=== PATIENT | female | born 1980 | race African-American/Black ===

== ENCOUNTER 2023-04-18 10:47 | Inpatient (IN) | payer OTHER ==
[2023-04-18 11:26] VITALS: BMI 21.7
[2023-04-18] MEDS ORDERED: LOPERAMIDE HCL 2 MG CAPSULE PO PRN (12:18)
[2023-04-18] MEDS ORDERED: NALOXONE HCL (KLOXXADO) 8 MG SPRAY NS PRN (12:18)
[2023-04-18] MEDS ORDERED: NALOXONE HCL 0.4 MG/ML VIAL IM PRN (12:18)
[2023-04-18] MEDS ORDERED: guaiFENesin 600 MG TABLET.ER (FP) PO PRN (12:18)
[2023-04-18] MEDS ORDERED: POLYETHYLENE GLYCOL (HEALTHYLAX) 3350 17 GM PACKET PO PRN (12:18)
[2023-04-18] MEDS ORDERED: ACETAMINOPHEN 325 MG TABLET (FP) PO PRN (12:18)
[2023-04-18] MEDS ORDERED: BENZONATATE 200 MG CAPSULE PO PRN (12:18)
[2023-04-18] MEDS ORDERED: MAGNESIUM HYDROX 2400MG/30ML ORAL SUSPENSION 30 ML CUP PO PRN (12:18)
[2023-04-18] MEDS ORDERED: BISMUTH SUBSALICYLATE 262 MG/15 ML BTL PO PRN (12:18)
[2023-04-18] MEDS ORDERED: NICOTINE 10 MG CARTRIDGE (INHALER) IH PRN (12:18)
[2023-04-18] MEDS ORDERED: BENZOCAINE/MENTHOL (CHLORASEPTIC ) LOZENGE MM PRN (12:18)
[2023-04-18] MEDS ORDERED: IBUPROFEN 400 MG TABLET (FP) PO PRN (12:18)
[2023-04-18] MEDS ORDERED: cloNIDine HCL 0.1 MG TABLET PO PRN (12:23)
[2023-04-18] MEDS ORDERED: methaDONE HCL 10 MG TABLET (FOR DETOX USE ONLY) PO ONE (12:23)
[2023-04-18] MEDS: METHOCARBAMOL 500 MG TABLET PO PRN ×2 (13:09→18:17)
[2023-04-18] MEDS: hydrOXYzine PAMOATE 25 MG CAPSULE (FP) PO PRN ×3 (13:09→22:44)
[2023-04-18] MEDS: THIAMINE HCL 100 MG TABLET (FP) PO SCH (22:44)
[2023-04-18] MEDS: MELATONIN 5 MG TABLETS PO SCH (22:44)
[2023-04-19] MEDS: IBUPROFEN 600 MG TABLET (FP) PO PRN (05:40)
[2023-04-19] MEDS: ONDANSETRON *ODT* 4 MG TABLET SL PRN (07:57)
[2023-04-19] MEDS: hydrOXYzine PAMOATE 25 MG CAPSULE (FP) PO PRN ×2 (07:57→17:44)
[2023-04-19] MEDS: DICYCLOMINE HCL 10 MG CAPSULE PO PRN (07:57)
[2023-04-19] MEDS: METHOCARBAMOL 500 MG TABLET PO PRN ×2 (07:57→17:43)
[2023-04-19] MEDS: PRENATAL VITAMINS W/ FOLIC ACID TABLET (FP) PO SCH (10:16)
[2023-04-19 11:02] LABS: POTASSIUM 4.1 mmol/L (3.5-5.1)
[2023-04-19 11:05] LABS: HEMATOCRIT 41.3 % (32.4-45.2); HEMOGLOBIN 14.1 GM/dL (10.7-15.3); MCH 30.3 pg (25.7-33.7); MCHC 34.1 g/dl (32.0-36.0); MEAN CELL VOLUME 88.8 fl (80-96); MEAN PLT VOLUME 9.6 fl (7.5-11.1); PLATELET COUNT 226 10^3/uL (134-434); RBC 4.65 M/mm3 (3.60-5.2); RDW 13.8 % (11.6-15.6); WHITE BLOOD COUNT 4.3 K/mm3 (4.0-10.0)
[2023-04-19 11:16] LABS: CALCIUM 9.4 mg/dL (8.5-10.1)
[2023-04-19 11:17] LABS: ALBUMIN 3.4 g/dl (3.4-5.0)
[2023-04-19 11:20] LABS: BILIRUBIN,TOTAL 0.7 mg/dL (0.2-1); CREATININE 0.8 mg/dL (0.55-1.3); TOT PROT 6.8 g/dl (6.4-8.2)
[2023-04-19] MEDS: THIAMINE HCL 100 MG TABLET (FP) PO SCH (21:32)
[2023-04-19] MEDS: MELATONIN 5 MG TABLETS PO SCH (21:32)
[2023-04-20] MEDS: IBUPROFEN 600 MG TABLET (FP) PO PRN (03:46)
[2023-04-20] MEDS: METHOCARBAMOL 500 MG TABLET PO PRN ×2 (05:15→14:19)
[2023-04-20] MEDS: hydrOXYzine PAMOATE 25 MG CAPSULE (FP) PO PRN ×2 (05:15→10:07)
[2023-04-20] MEDS ORDERED: methaDONE HCL 10 MG TABLET (FOR DETOX USE ONLY) PO ONE (10:00)
[2023-04-20] MEDS: PRENATAL VITAMINS W/ FOLIC ACID TABLET (FP) PO SCH (10:07)
[2023-04-20] MEDS: MELATONIN 5 MG TABLETS PO SCH (22:34)
[2023-04-20] MEDS: THIAMINE HCL 100 MG TABLET (FP) PO SCH (22:34)
[2023-04-21] MEDS: METHOCARBAMOL 500 MG TABLET PO PRN ×2 (00:44→09:59)
[2023-04-21] MEDS: IBUPROFEN 600 MG TABLET (FP) PO PRN (00:44)
[2023-04-21] MEDS: DICYCLOMINE HCL 10 MG CAPSULE PO PRN ×3 (02:04→22:27)
[2023-04-21] MEDS: MAG HYDROX/AL HYDROX/SIMETH 30 ML UNIT-DOSE CUP PO PRN ×3 (03:11→22:32)
[2023-04-21] MEDS: ONDANSETRON *ODT* 4 MG TABLET SL PRN (09:36)
[2023-04-21] MEDS: PRENATAL VITAMINS W/ FOLIC ACID TABLET (FP) PO SCH (09:58)
[2023-04-21] MEDS: hydrOXYzine PAMOATE 25 MG CAPSULE (FP) PO PRN ×2 (09:59→22:27)
[2023-04-21] MEDS ORDERED: PANTOPRAZOLE 40 MG TABLET PO ONE (13:30)
[2023-04-21] MEDS: MELATONIN 5 MG TABLETS PO SCH (22:26)
[2023-04-21] MEDS: THIAMINE HCL 100 MG TABLET (FP) PO SCH (22:26)
[2023-04-22] MEDS: MAG HYDROX/AL HYDROX/SIMETH 30 ML UNIT-DOSE CUP PO PRN ×2 (05:53→17:51)
[2023-04-22] MEDS: PANTOPRAZOLE 40 MG TABLET PO SCH (06:14)
[2023-04-22] MEDS ORDERED: methaDONE HCL 10 MG TABLET (FOR DETOX USE ONLY) PO ONE (10:00)
[2023-04-22] MEDS: METHOCARBAMOL 500 MG TABLET PO PRN (10:06)
[2023-04-22] MEDS: PRENATAL VITAMINS W/ FOLIC ACID TABLET (FP) PO SCH (10:06)
[2023-04-22] MEDS ORDERED: NICOTINE POLACRILEX 2 MG GUM BUC PRN (10:54)
[2023-04-22] MEDS ORDERED: COLLOIDAL OATMEAL 1 BAR EACH TP PRN (11:06)
[2023-04-22] MEDS: hydrOXYzine PAMOATE 25 MG CAPSULE (FP) PO PRN (17:18)
[2023-04-22] MEDS: THIAMINE HCL 100 MG TABLET (FP) PO SCH (22:05)
[2023-04-22] MEDS: MELATONIN 5 MG TABLETS PO SCH (22:05)
[2023-04-23] MEDS: PANTOPRAZOLE 40 MG TABLET PO SCH (06:12)
[2023-04-23 09:34] VITALS: BP 105/61; PULSE 64; RESP 16; TEMP 97.3
[2023-04-23] MEDS: PRENATAL VITAMINS W/ FOLIC ACID TABLET (FP) PO SCH (10:30)
== END 2023-04-23 09:05 | disposition home or self-care (01) | DRG 773 ==
LOC: YASAS 10:47 → Y6N 12:51
PROVIDERS: ADMIT Allergy & Immunology; ATTEND Surgery
PROC: HZ2ZZZZ Detoxification Services for Substance Abuse Treatment (ICD-10-PCS; principal; 2023-04-18)
DX: F11.23 Opioid dependence with withdrawal (principal); F14.20 Cocaine dependence, uncomplicated; F12.10 Cannabis abuse, uncomplicated; F17.210 Nicotine dependence, cigarettes, uncomplicated
CPT/HCPCS: 36415; 80053; 81025; 82140; 85027; 86780; 87811; 93005; 93010; C9803-CS; Q0162; U0003; U0005